=== PATIENT | male | born 1970 | race Caucasian/White ===

== ENCOUNTER 2017-05-02 21:51 | Observation (INO) | payer OTHER ==
[~2017-05-02] VITALS: Ht 182.9 cm; Wt 104.8 kg
[~2017-05-02 21:51] MED LIST: CIPRO500 MG PO; DIAZEPAM 5 MG5 M1 PO; FLAGYL500 MG PO; HYDROCODONE-APA1 TA1 PO; NOHOMEMEDICATIONS; NORCO 5-325 TA1 EACH PO; NORFLEX100 MG PO; ONDANSETRON HCL4 M2 PO; PRILOSEC 20 MG20 MG PO; PROTONIX40 MG PO; SENOKOT-S1 TA1 PO; VICODIN 5-5001 EACH PO; ZOFRAN ODT4 MG PO
[2017-05-02 21:56] VITALS: BP 136/56
[2017-05-02 22:33] LABS: ABSOLUTE NEUTROPHILS 6.5 thou/uL (1.4-8.2); BASOPHILS 0.8 % (0.0-2.0); EOSINOPHILS 0.8 % (0.0-3.0); HEMATOCRIT 37.8 % (42.0-52.0); HEMOGLOBIN 13.5 gm/dL (14.0-18.0); LYMPHOCYTES 17.2 % (24.0-44.0); MCH 32.8 pg (26.0-34.0); MCHC 35.7 g/dL (28.0-37.0); MCV 91.9 fL (80.0-100.0); MONOCYTES 9.7 % (1.0-8.0); PLATELET COUNT 254 thou/uL (150-400); POLYS 71.5 % (36.0-66.0); RBC 4.12 mil/uL (4.50-6.00); WBC 9.1 thou/uL (4.0-11.0)
[2017-05-02 22:50] LABS: URINE BILIRUBIN NEGATIVE (Negative); URINE BLOOD NEGATIVE (Negative); URINE COLOR YELLOW; URINE GLUCOSE-RANDOM* NEGATIVE (Negative); URINE KETONES NEGATIVE (Negative); URINE NITRITE NEGATIVE (Negative); URINE PROTEIN (DIPSTICK) NEGATIVE (Negative); URINE UROBILINOGEN 0.2 E.U./dl (0.2-1.0)
[2017-05-02 22:51] LABS: CALCIUM 8.8 mg/dL (8.5-10.1); CREATININE 1.2 mg/dL (0.7-1.3); POTASSIUM 3.9 mmol/L (3.5-5.1)
[2017-05-02 22:52] LABS: MANUAL DIFF NO
[2017-05-02 22:57] LABS: ALBUMIN 3.7 g/dL (3.4-5.0); TOTAL BILIRUBIN 0.6 mg/dL (<0.1-1.0); TOTAL PROTEIN 6.9 g/dL (6.4-8.2)
[2017-05-03 00:47] VITALS: BP 146/87
[2017-05-03 04:30] VITALS: BP 129/86
[2017-05-03 09:05] VITALS: BP 128/87
[2017-05-03 15:55] VITALS: BP 128/91
[2017-05-03 19:40] VITALS: BP 131/77
[2017-05-04 04:09] VITALS: BP 125/78
[2017-05-04 06:06] LABS: HEMATOCRIT 37.8 % (42.0-52.0); HEMOGLOBIN 13.2 gm/dL (14.0-18.0); MCH 32.8 pg (26.0-34.0); MCV 93.8 fL (80.0-100.0); RBC 4.03 mil/uL (4.50-6.00); RDW 12.8 % (10.5-14.5); WBC 5.9 thou/uL (4.0-11.0)
[2017-05-04 06:26] LABS: CALCIUM 8.5 mg/dL (8.5-10.1); POTASSIUM 3.9 mmol/L (3.5-5.1)
[2017-05-04 08:00] VITALS: BP 138/89
[2017-05-04] MEDS ORDERED: HYDROCODONE-AP1 EAC6 PO (12:11)
[2017-05-04] MEDS ORDERED: CIPRO500 MG PO (12:12)
[2017-05-04] MEDS ORDERED: FLAGYL500 MG PO (12:12)
[2017-05-04 12:25] VITALS: BP 138/89
== END 2017-05-04 13:38 | disposition home or self-care (01) ==
LOC: ER 21:51 → 3N 05-03 00:09 → EROBS 05-03 00:09 → 3N 05-03 00:46
PROVIDERS: Hospitalist; Physician Assistant
DX: K57.92 Diverticulitis of intestine, part unspecified, without perforation or abscess without bleeding (principal); R10.32 Left lower quadrant pain; M51.26 Other intervertebral disc displacement, lumbar region; N20.0 Calculus of kidney
CPT/HCPCS: 23020; 23021; 23025; 23029; 23031

== ENCOUNTER 2017-08-29 18:19 | Emergency (ER) | payer OTHER ==
[~2017-08-29] VITALS: Ht 182.9 cm; Wt 104.3 kg
[~2017-08-29 18:19] MED LIST changes: +HYDROCODONE-AP1 EAC6 PO
[2017-08-29 18:45] LABS: ABSOLUTE NEUTROPHILS 4.3 thou/uL (1.4-8.2); BASOPHILS 0.6 % (0.0-2.0); EOSINOPHILS 1.2 % (0.0-3.0); HEMATOCRIT 40.6 % (42.0-52.0); HEMOGLOBIN 14.8 gm/dL (14.0-18.0); LYMPHOCYTES 34.1 % (24.0-44.0); MCH 34.1 pg (26.0-34.0); MCHC 36.3 g/dL (28.0-37.0); MCV 93.9 fL (80.0-100.0); MONOCYTES 8.3 % (1.0-8.0); PLATELET COUNT 284 thou/uL (150-400); POLYS 55.8 % (36.0-66.0); RBC 4.32 mil/uL (4.50-6.00); RDW 13.2 % (10.5-14.5); WBC 7.7 thou/uL (4.0-11.0)
[2017-08-29 18:52] LABS: CALCIUM 8.9 mg/dL (8.5-10.1); CREATININE 1.2 mg/dL (0.7-1.3); POTASSIUM 4.2 mmol/L (3.5-5.1)
[2017-08-29 18:52] LABS: URINE BILIRUBIN NEGATIVE (Negative); URINE BLOOD NEGATIVE (Negative); URINE COLOR YELLOW; URINE GLUCOSE-RANDOM* NEGATIVE (Negative); URINE KETONES NEGATIVE (Negative); URINE NITRITE NEGATIVE (Negative); URINE PROTEIN (DIPSTICK) NEGATIVE (Negative); URINE SPECIFIC GRAVITY >= 1.030 (1.005-1.035); URINE UROBILINOGEN 0.2 E.U./dl (0.2-1.0)
[2017-08-29 18:55] LABS: MANUAL DIFF NO
[2017-08-29 18:58] LABS: ALBUMIN 4.2 g/dL (3.4-5.0); TOTAL BILIRUBIN 0.5 mg/dL (<0.1-1.0); TOTAL PROTEIN 7.3 g/dL (6.4-8.2)
[2017-08-29] MEDS ORDERED: CIPRO500 MG PO (21:06)
[2017-08-29] MEDS ORDERED: FLAGYL500 MG PO (21:06)
[2017-08-29] MEDS ORDERED: HYDROCODONE-AP1 EAC6 PO (21:06)
[2017-08-29 21:12] VITALS: BP 130/89
== END 2017-08-29 21:13 | disposition home or self-care (01) ==
LOC: ER 18:19
PROVIDERS: Physician Assistant
DX: K57.92 Diverticulitis of intestine, part unspecified, without perforation or abscess without bleeding (principal); Z87.442 Personal history of urinary calculi; Z98.890 Other specified postprocedural states

== ENCOUNTER 2017-09-10 11:52 | Inpatient (IN) | payer OTHER ==
[~2017-09-10] VITALS: Ht 182.9 cm; Wt 107.0 kg
[2017-09-10 11:53] VITALS: BP 137/102
[2017-09-10 13:04] LABS: ABSOLUTE NEUTROPHILS 5.1 thou/uL (1.4-8.2); BASOPHILS 0.6 % (0.0-2.0); EOSINOPHILS 1.1 % (0.0-3.0); HEMATOCRIT 42.8 % (42.0-52.0); HEMOGLOBIN 15.2 gm/dL (14.0-18.0); MCH 33.3 pg (26.0-34.0); MCHC 35.4 g/dL (28.0-37.0); MCV 94.1 fL (80.0-100.0); PLATELET COUNT 312 thou/uL (150-400); POLYS 62.3 % (36.0-66.0); RBC 4.55 mil/uL (4.50-6.00); RDW 13.1 % (10.5-14.5); WBC 8.1 thou/uL (4.0-11.0)
[2017-09-10 13:07] LABS: CREATININE 1.1 mg/dL (0.7-1.3); POTASSIUM 4.3 mmol/L (3.5-5.1)
[2017-09-10 13:13] LABS: ALBUMIN 4.1 g/dL (3.4-5.0); DIRECT BILIRUBIN 0.1 mg/dL (<0.1-0.3); TOTAL BILIRUBIN 0.5 mg/dL (<0.1-1.0); TOTAL PROTEIN 7.2 g/dL (6.4-8.2)
[2017-09-10 15:34] VITALS: BP 131/87
[2017-09-10 16:10] VITALS: BP 145/89
[2017-09-10 20:45] VITALS: BP 126/77
[2017-09-11 00:05] LABS: URINE BILIRUBIN NEGATIVE (Negative); URINE BLOOD NEGATIVE (Negative); URINE CLARITY CLEAR; URINE COLOR YELLOW; URINE GLUCOSE-RANDOM* NEGATIVE (Negative); URINE KETONES NEGATIVE (Negative); URINE LEUKOCYTES-REFLEX NEGATIVE (Negative); URINE NITRITE-REFLEX NEGATIVE (Negative); URINE PROTEIN (DIPSTICK) NEGATIVE (Negative); URINE SPECIFIC GRAVITY 1.015 (1.005-1.035); URINE UROBILINOGEN 0.2 E.U./dl (0.2-1.0)
[2017-09-11 03:55] VITALS: BP 129/79
[2017-09-11 05:34] LABS: ABSOLUTE NEUTROPHILS 3.9 thou/uL (1.4-8.2); BASOPHILS 0.6 % (0.0-2.0); EOSINOPHILS 1.8 % (0.0-3.0); HEMATOCRIT 39.9 % (42.0-52.0); HEMOGLOBIN 14.1 gm/dL (14.0-18.0); LYMPHOCYTES 31.4 % (24.0-44.0); MCH 33.2 pg (26.0-34.0); MCHC 35.4 g/dL (28.0-37.0); MCV 93.8 fL (80.0-100.0); MONOCYTES 10.1 % (1.0-8.0); PLATELET COUNT 285 thou/uL (150-400); POLYS 56.1 % (36.0-66.0); RBC 4.26 mil/uL (4.50-6.00); RDW 13.4 % (10.5-14.5)
[2017-09-11 05:54] LABS: CALCIUM 9.1 mg/dL (8.5-10.1); CREATININE 1.1 mg/dL (0.7-1.3); POTASSIUM 4.1 mmol/L (3.5-5.1)
[2017-09-11 07:19] VITALS: BP 112/77
[2017-09-11] MEDS ORDERED: PERCOCET PO (12:53)
[2017-09-11 13:16] VITALS: BP 112/77
== END 2017-09-11 14:03 | disposition home or self-care (01) | DRG 392 ==
LOC: ER 11:52 → 4S 14:44 → EROBS 14:44 → 4S 15:34
PROVIDERS: Emergency Medicine; Internal Medicine Endocrinology, Diabetes & Metabolism
DX: K57.92 Diverticulitis of intestine, part unspecified, without perforation or abscess without bleeding (principal); G89.29 Other chronic pain; K21.9 Gastro-esophageal reflux disease without esophagitis; Z87.442 Personal history of urinary calculi; Z79.899 Other long term (current) drug therapy
CPT/HCPCS: 10195

== ENCOUNTER 2019-04-21 15:15 | Emergency (ER) | payer OTHER ==
[~2019-04-21] VITALS: Ht 182.9 cm; Wt 104.3 kg
[~2019-04-21 15:15] MED LIST changes: +PERCOCET PO
[2019-04-21] MEDS ORDERED: LAMISIL AT 1% C12 G1 (15:18)
[2019-04-21 15:32] LABS: ABSOLUTE NEUTROPHILS 4.5 thou/uL (1.4-8.2); EOSINOPHILS 0.1 % (0.0-3.0); HEMATOCRIT 43.4 % (42.0-52.0); HEMOGLOBIN 15.4 gm/dL (14.0-18.0); LYMPHOCYTES 26.1 % (24.0-44.0); MCH 33.8 pg (26.0-34.0); MCHC 35.6 g/dL (28.0-37.0); MCV 95.1 fL (80.0-100.0); MONOCYTES 7.6 % (1.0-8.0); PLATELET COUNT 283 thou/uL (150-400); POLYS 65.2 % (36.0-66.0); RBC 4.56 mil/uL (4.50-6.00); RDW 13.1 % (10.5-14.5); WBC 6.9 thou/uL (4.0-11.0)
[2019-04-21 15:32] LABS: URINE BILIRUBIN NEGATIVE (Negative); URINE BLOOD NEGATIVE (Negative); URINE CLARITY CLEAR; URINE COLOR YELLOW; URINE GLUCOSE-RANDOM* NEGATIVE (Negative); URINE KETONES NEGATIVE (Negative); URINE LEUKOCYTES NEGATIVE (Negative); URINE NITRITE NEGATIVE (Negative); URINE PROTEIN (DIPSTICK) NEGATIVE (Negative); URINE SPECIFIC GRAVITY >= 1.030 (1.005-1.035); URINE UROBILINOGEN 0.2 E.U./dl (0.2-1.0)
[2019-04-21 15:39] LABS: CALCIUM 9.5 mg/dL (8.5-10.1); CREATININE 1.2 mg/dL (0.7-1.3)
[2019-04-21 15:45] LABS: ALBUMIN 4.3 g/dL (3.4-5.0); TOTAL BILIRUBIN 0.6 mg/dL (<0.1-1.0); TOTAL PROTEIN 7.9 g/dL (6.4-8.2)
[2019-04-21 20:04] VITALS: BP 130/92
== END 2019-04-21 20:35 | disposition home or self-care (01) ==
LOC: ER 15:15
PROVIDERS: Emergency Medicine
DX: R20.2 Paresthesia of skin (principal); Z87.442 Personal history of urinary calculi